=== PATIENT | female | born 1955 | race Caucasian/White ===

== ENCOUNTER 2018-01-14 15:07 | Inpatient (IN) | payer OTHER, MEDICARE ==
[~2018-01-14] VITALS: Ht 167.6 cm; Wt 109.6 kg
[~2018-01-14 15:07] MED LIST: CYMBALTA 60MG60 MG PO; GLUCOPHAGE500 MG/TAB PO; LIPITOR20 MG PO; PRILOSEC 20MG20 MG PO; PRINIVIL20 MG PO; PROAIR HFA0.09 MG/AC IH
[2018-03-25] VITALS (13 sets, daily range): BP systolic 99–126; BP diastolic 53–86; PULSE 66–92; TEMP 97.3–99
[2018-03-25] MEDS ORDERED: ANORO IH (07:25)
[2018-03-25] MEDS ORDERED: STIOLTO RESPIMAT4 GM IH (07:26)
[2018-03-25] MEDS ORDERED: COZAAR 50MG50 MG/TAB PO (07:27)
[2018-03-25] MEDS ORDERED: NORVASC 10MG10 MG PO (07:27)
[2018-03-25] MEDS ORDERED: VENTOLIN0.09 MG IH (07:28)
[2018-03-25] MEDS ORDERED: PRIL40 PO (07:36)
[2018-03-25] MEDS ORDERED: PRILOTC PO (07:36)
[2018-03-26 04:44] VITALS: BP 135/79; PULSE 82; TEMP 97.9
[2018-03-26 06:22] LABS: HEMOGLOBIN 10.7 g/dl (12.5-16.0)
[2018-03-26 06:27] LABS: HEMATOCRIT 34.6 % (37.0-47.0)
[2018-03-26 07:33] VITALS: BP 126/66; PULSE 78; TEMP 98.8
[2018-03-26 11:36] VITALS: BP 120/82; PULSE 83; TEMP 98
[2018-03-26 16:50] VITALS: BP 127/71; PULSE 89; TEMP 98.1
[2018-03-26 21:30] VITALS: BP 124/74; PULSE 92; TEMP 98.6
[2018-03-27 00:24] VITALS: BP 124/68; PULSE 89; TEMP 98.4
[2018-03-27 04:40] VITALS: BP 132/71; PULSE 95; TEMP 98.5
[2018-03-27] MEDS ORDERED: ASPI325T6 PO (06:52)
[2018-03-27] MEDS ORDERED: ROXICODONE 55 MG/TAB PO (06:53)
[2018-03-27] MEDS ORDERED: NORCO 325 MG-7.1 TAB PO (06:53)
[2018-03-27 07:09] VITALS: BP 114/71; PULSE 85; TEMP 98.2
[2018-03-27 11:13] VITALS: BP 111/70; PULSE 99; TEMP 98.8
== END 2018-03-27 13:45 | disposition home or self-care (01) | DRG 470 ==
LOC: JCC 03-25 06:39
PROVIDERS: Orthopaedic Surgery
PROC: 0SRC0J9 Replacement of Right Knee Joint with Synthetic Substitute, Cemented, Open Approach (ICD-10-PCS; principal; 2018-03-25 11:20)
DX: M17.11 Unilateral primary osteoarthritis, right knee (principal); I10 Essential (primary) hypertension; J44.9 Chronic obstructive pulmonary disease, unspecified; E11.9 Type 2 diabetes mellitus without complications; Z87.891 Personal history of nicotine dependence
CPT/HCPCS: A4314; A9284; C1713; C1776; J0690; J2250; J2270; J2405; J2704; J3010; J3260; J7030

== ENCOUNTER → 2018-03-12 | Outpatient (CLI) | payer OTHER, MEDICARE ==
[2018-03-12 16:56] LABS: HIV 1/2 Antibodies Non-Reactive; HIV-1p24 Antigen Non-Reactive
== END ==
LOC: COL.LAB 15:38
PROVIDERS: Orthopaedic Surgery
DX: Z01.812 Encounter for preprocedural laboratory examination (principal); M17.11 Unilateral primary osteoarthritis, right knee

== ENCOUNTER → 2018-12-17 | Outpatient (CLI) | payer OTHER ==
[~2018-12-17] MED LIST changes: +ANORO IH; +ASPI325T6 PO; +COZAAR 50MG50 MG/TAB PO; +NORCO 325 MG-7.1 TAB PO; +NORVASC 10MG10 MG PO; +PRIL40 PO; +PRILOTC PO; +ROXICODONE 55 MG/TAB PO; +STIOLTO RESPIMAT4 GM IH; +VENTOLIN0.09 MG IH
[2018-12-17 17:49] LABS: HEMOGLOBIN 12.7 g/dl (12.5-16.0); MEAN CELL VOLUME 88 fl (80.0-100.0); MEAN CORPUSCULAR HEMOGLOBIN 30 pg (27.0-31.0); MEAN CORPUSCULAR HGB CONC 33 g/dl (33.0-37.0); MEAN PLATELET VOLUME 9.5 fl (7.4-10.4); PLATELET COUNT 284 K/mm3 (130-400); REDCELL DISTRIBUTION WIDTH-CV 13.9 % (11.5-14.5)
[2018-12-17 18:26] LABS: ERYTHROCYTE SEDIMENTATION RATE 16 mm/hr (0-30)
== END ==
LOC: COL.LAB 17:19
PROVIDERS: Orthopaedic Surgery
DX: M25.551 Pain in right hip (principal); Z96.641 Presence of right artificial hip joint

== ENCOUNTER 2019-05-08 14:41 | Inpatient (IN) | payer OTHER, MEDICARE ==
[~2019-05-08] VITALS: Ht 167.6 cm; Wt 108.0 kg
[2019-07-08] VITALS (10 sets, daily range): BP systolic 99–128; BP diastolic 64–75; PULSE 72–90; TEMP 98–98.4
[2019-07-08] MEDS ORDERED: TOPROL XL100 MG PO (09:21)
--- NOTE | 2019-07-08 09:47 | NUR ---
pt prepped for surgery, pre op meds given as ordered. IV sticks unsuccsessful, Erik house cleaner attempting start atthis time.
--- NOTE | 2019-07-08 09:59 | NUR ---
pt to surgery per bed with
--- NOTE | 2019-07-08 14:14 | NUR ---
PT TO ROOM 328 PER BED WITH CAROLYN ALFARO PACU @1340. PT A/O X3, LUNGS CLEAR, DRESSING TO LEFT KNEE CDI WITH AQUCEL OVER INCISION WITH POLAR PACK INPLACE. PEDAL PULSES PALPABLE, PT ABLE TO MOVE FEET AND TOES. IV TO PUMP 20 GA TO LEFT FA. SCDS AND TEDS BILATERLLY.
[2019-07-08] MEDS ORDERED: LOPRESSOR 225 MG/TAB PO (14:23)
--- NOTE | 2019-07-08 18:25 | NUR ---
PT SITTING IN BED DENIES NEEDS AT THIS TIME. DRESSING TO LEFT KNEE CDI;
--- NOTE | 2019-07-08 20:00 | NUR ---
Report received. Assumed care for shift boss. Assessment complete. VS stable. A&Ox3. Dressing to left [id number]-E/D/I. SCDs/TEDs bilat. Cryocuff in place-fresh ice added. States she still cant feel her left lower extremity. Plan of care discussed for pain control, HS meds, and ambulation when feeling returns. Denies shortness of breath/nausea. Call light in reach. Bed in low/wheels locked. Encouraged to call for needs. Verbalizes understanding. Will monitor.
--- NOTE | 2019-07-09 00:20 | NUR ---
C/O "upset stomach" states its acid reflux/nausea. Ordered pizza for dinner and states its not sitting with her well. Zofran given per order. Will reassess
[2019-07-09 00:27] VITALS: BP 98/61; PULSE 78; TEMP 97.8
--- NOTE | 2019-07-09 01:00 | NUR ---
Still with numbness/tingling to left lower extremity. Did attempt to ambulate without success. Will re-evaluate later this shift.
--- NOTE | 2019-07-09 04:20 | NUR ---
Has not slept well this shift. Continued to have acid reflux through the night. States the only medication that helps is prilosec. Encouraged to have family bring this AM so new orders can be written to take home medication. Verbalizes understanding. C/O pain to Left knee described as throbbing-rated 7/10. Oxycodone given per order. Block is wearing off but states she doesnt want to attempt to ambulate again as she thinks it will make her vomit. Fresh ice to cryocuff. SCDs/TEDs bilat.
[2019-07-09 04:55] VITALS: BP 112/64; PULSE 78; TEMP 97.8
--- NOTE | 2019-07-09 07:04 | NUR ---
Report from Chantell ALFARO.
[2019-07-09 07:45] VITALS: BP 99/57; PULSE 78; TEMP 98.1
[2019-07-09 08:18] LABS: HEMATOCRIT 30.7 % (37.0-47.0); HEMOGLOBIN 9.7 g/dl (12.5-16.0)
--- NOTE | 2019-07-09 10:15 | NUR ---
TAVARES met with the patient and the patient's family to discuss a discharge plan. The patient lives in [place] with her . The patient has a walker and reports independence with ADLs. The patient's PCP is Dr. Olmos and patient receives medicaition from [facility] with no difficulties. The patient does not have advanced directives in the EMR. The patient was no interested DPOA-HC form. The patient plans to return home with outpatient physical therapy in [place] at [facility] and [facility] . TAVARES left message. The patient plans to return home with her providing transportation. professional services consultant will continue to follow.
[2019-07-09 11:36] VITALS: BP 113/62; PULSE 73; TEMP 97.8
--- NOTE | 2019-07-09 11:53 | NUR ---
PT OUT TO [facility] WITH THERAPY, PT DENIES NEEDS, PAIN WELL CONTROLLED WITH PO MEDS. PT TOLERATING WELL.
[2019-07-09 17:16] VITALS: BP 110/67; PULSE 70; TEMP 98.1
--- NOTE | 2019-07-09 19:00 | NUR ---
Report received. Assumed care for applications coordinator. A&Ox3. Assessment complete. VS stable. C/O pain to left knee-rating 9/10-described as throbbing. Roxicodone given per dr yang. Up to ambulate at this time. Ambulated approx 150 feet-tired quickly but tolerated well. Requesting HS meds to be given now as she states she is exhausted and wants to go to bed. Denies shortness of breath/nausea. +flatus. Due to void post sinclair cath removal. Dressing to left knee aquacell-dime size old drainage noted. SCDs/Teds bilat. Cryocuff with fresh ice water. Instructed to call for questions or concerns and when ready to void. Verbalizes understanding. Will monitor.
[2019-07-09] MEDS ORDERED: NORCO 325 MG-7.1 TAB PO (19:37)
[2019-07-09] MEDS ORDERED: ROXICODONE 55 MG/TAB PO (19:37)
[2019-07-09] MEDS ORDERED: ASPI325T6 PO (19:37)
[2019-07-10 00:49] VITALS: BP 108/67; PULSE 71; TEMP 97.8
[2019-07-10 02:35] VITALS: BP 141/70; PULSE 72; TEMP 97.5
--- NOTE | 2019-07-10 07:30 | NUR ---
Patient resting in bed eating breakfast at this time. Patient reports pain is controlled currently and she denies any nausea. Patient states that she would like to take a shower after breakfast prior to discharge. INT removed from left forearm, catheter intact, hemostasis achieved. Patient denies further needs at this time, call light within reach.
[2019-07-10 08:55] VITALS: BP 121/74; PULSE 86; TEMP 97.9
--- NOTE | 2019-07-10 09:20 | NUR ---
Patient showered independently. Replaced Yang hose after changing aquacel, incision is well approximated with no indications of drainage, swelling, or discoloration, aimee intact. Discharge teaching completed, patient denies questions or needs. Prescriptions given to patient along with instructions on how to fill them and script for PT/OT. Patient denies further questions or needs, patient escorted to visitor entrance and assisted into private vehicle.
--- NOTE | 2019-07-10 16:59 | NUR ---
The patient discharged today, 07/10 home with outpatient physical therapy with [facility]. SW faxed order. There are no additional needs at this time.
== END 2019-07-10 09:20 | disposition home or self-care (01) | DRG 470 ==
LOC: JCC 07-08 07:30
PROVIDERS: ADMIT Orthopaedic Surgery
PROC: 0SRD0J9 Replacement of Left Knee Joint with Synthetic Substitute, Cemented, Open Approach (ICD-10-PCS; principal; 2019-07-08 11:00)
DX: M17.12 Unilateral primary osteoarthritis, left knee (principal); J44.9 Chronic obstructive pulmonary disease, unspecified; F32.9 Major depressive disorder, single episode, unspecified; E11.9 Type 2 diabetes mellitus without complications; E78.00 Pure hypercholesterolemia, unspecified; I10 Essential (primary) hypertension; Z90.710 Acquired absence of both cervix and uterus; Z90.49 Acquired absence of other specified parts of digestive tract; Z87.891 Personal history of nicotine dependence; K21.9 Gastro-esophageal reflux disease without esophagitis; G89.29 Other chronic pain; Z88.3 Allergy status to other anti-infective agents
CPT/HCPCS: A4314; A9284; C1776; J0690; J1100; J1885; J1940; J2250; J2405; J2704; J3010; J3370; J7030; J7120